=== PATIENT | male | born 1940 ===

== ENCOUNTER 2017-10-25 16:58 | Observation (INO) | payer MEDICARE ==
[~2017-10-25] VITALS: Ht 177.8 cm; Wt 86.9 kg
[~2017-10-25 16:58] MED LIST: ATEN50 PO; Alprazolam0.25 MG PO; B-121000 MCG PO; BAYER CHEWABLE81 MG PO; Benicar40 MG PO; CLOP75 PO; CO Q10200 MG PO; Clotrimazole-Be15 GM TP; DULO60 PO; FINA5 PO; Felodipine ER10 MG PO; Glucophage1000 MG PO; KRILL OIL 3001 EACH PO; LIVALO2 MG; Levitra20 MG; Nitrostat0.4 MG SL; OLME20 PO; TAMS.4ER PO; TERB250 PO; VIT1CAPS12 PO; VITAMIN D-32000 UNIT; VITAMIN D-32000 UNIT PO; ZOLP12.5 PO; ZOLPIDEM TART12.5 MG PO; Zantac150 MG PO
[2017-10-25 18:03] LABS: BASOPHILS ABSOLUTE AUTO 0.04 K/mm3 (0.00-0.23); BASOPHILS PERCENT AUTO 1 % (0-2); EOSINOPHILS ABSOLUTE AUTO 0.35 K/mm3 (0.00-0.68); EOSINOPHILS PERCENT AUTO 5 % (0-6); Hematocrit 42.8 % (37.0-53.0); Hemoglobin 14.3 g/dL (13.5-17.5); IMMATURE GRAN ABSOLUTE AUTO 0.02 K/mm3 (0.00-0.10); IMMATURE GRAN PERCENT AUTO 0 % (0-1); LYMPHOCYTES ABSOLUTE AUTO 1.86 K/mm3 (0.84-5.20); LYMPHOCYTES PERCENT AUTO 25 % (21-46); MONOCYTES ABSOLUTE AUTO 0.68 K/mm3 (0.16-1.47); MONOCYTES PERCENT AUTO 9 % (4-13); Mean Corpuscular HGB 30.8 pg (26.0-34.0); Mean Corpuscular HGB Conc 33.4 g/dL (31.5-36.5); Mean Corpuscular Volume 92 fL (80-100); NEUTROPHILS ABSOLUTE AUTO 4.43 K/mm3 (1.96-9.15); NEUTROPHILS PERCENT AUTO 60 % (41-73); Platelet Count 255 K/mm3 (150-400); RDW Coefficient Variation 12.4 % (11.7-14.2); RDW Standard Deviation 41.9 fL (35.1-46.3); Red Blood Cell Count 4.64 M/mm3 (4.30-5.90); White Blood Cell Count 7.38 K/mm3 (4.00-11.30)
[2017-10-25 18:53] LABS: Alanine Aminotransfer (ALT/SGP 55 U/L (12-78); Albumin, Blood 3.9 g/dL (3.4-5.0); Alk Phos 54 U/L (50-136); Anion Gap 8 mmol/L (6-16); Aspartate Aminotrans (AST/SGOT 25 U/L (12-37); Bilirubin, Total 0.5 mg/dL (0.1-1.0); Blood Urea Nitrogen 25 mg/dL (8-24); Bun/Creatinine Ratio 17.1 (12.0-20.0); CO2, Blood 31 mmol/L (21-32); Chloride, Blood 100 mmol/L (98-108); Creatinine, Blood 1.46 mg/dL (0.60-1.20); Glomerular Filtration Rate 50 (60-); Glucose, Blood 134 mg/dL (70-99); Potassium, Blood 3.9 mmol/L (3.5-5.5); Sodium, Blood 139 mmol/L (136-145); Total Protein, Blood 7.9 g/dL (6.4-8.2); Troponin I <0.015 ng/mL (0.000-0.040)
[2017-10-25] MEDS ORDERED: CHLO25B PO (21:24)
[2017-10-25] MEDS ORDERED: Metformin HCl1000 MG PO (21:25)
[2017-10-25] MEDS ORDERED: OMEG1CAP30 PO (21:25)
[2017-10-25] MEDS ORDERED: LIVALO2 MG PO (21:26)
[2017-10-25] MEDS ORDERED: Isosorbide Mono60 MG PO (21:27)
[2017-10-25] MEDS ORDERED: TRAZ50 PO (21:27)
[2017-10-25] MEDS ORDERED: Lopressor 25 mg25 MG PO (21:27)
[2017-10-25] MEDS ORDERED: NITR.4SL SL (21:27)
[2017-10-25] MEDS ORDERED: OLMESARTAN MEDO40 MG PO (21:27)
[2017-10-25] MEDS ORDERED: AMLO10 PO (21:28)
[2017-10-25] MEDS ORDERED: Glimepiride1 MG PO (21:28)
[2017-10-25] MEDS ORDERED: Glucophage1000 MG PO (21:30)
[2017-10-25] MEDS ORDERED: Benicar40 MG PO (21:31)
[2017-10-25 22:07] LABS: Source, Urine Clean Catch
[2017-10-25 22:09] LABS: Appearance, Urine Clear (Clear); Blood, Urine Neg (Neg); Color, Urine Amber (P-Yellow); Glucose Qualitative, Urine 1+ (Neg); Ketones, Urine 1+ (Neg); Leukocyte Esterase, Urine 1+ (Neg); Nitrite, Urine Neg (Neg); Protein, Urine 2+ (Neg); Urobilinogen, Urine 1+ (Normal)
[2017-10-25 22:16] LABS: Bilirubin, Urine 1+ (Neg); Red Blood Cells, Urine 0-2 /hpf (0-2); Squamous Epithelial Cells Rare /hpf (Few); White Blood Cells, Urine 0-2 /hpf (0-5)
[2017-10-25 22:17] LABS: Bacteria Mod /hpf; Calcium Oxalate Crystals Many /hpf; Hyaline Casts 25-50 /lpf (0-2)
[2017-10-26 04:58] LABS: Hematocrit 37.2 % (37.0-53.0); Hemoglobin 12.5 g/dL (13.5-17.5); Mean Corpuscular HGB 31.2 pg (26.0-34.0); Mean Corpuscular HGB Conc 33.6 g/dL (31.5-36.5); Mean Corpuscular Volume 93 fL (80-100); Mean Platelet Volume 10.7 fL (9.1-12.4); Platelet Count 207 K/mm3 (150-400); RDW Coefficient Variation 12.4 % (11.7-14.2); RDW Standard Deviation 42.5 fL (35.1-46.3); Red Blood Cell Count 4.01 M/mm3 (4.30-5.90); White Blood Cell Count 6.85 K/mm3 (4.00-11.30)
[2017-10-26 05:31] LABS: Albumin, Blood 3.3 g/dL (3.4-5.0); Bilirubin, Total 0.3 mg/dL (0.1-1.0); Bun/Creatinine Ratio 22.2 (12.0-20.0); Calcium, Blood 8.2 mg/dL (8.5-10.1); Creatinine, Blood 1.44 mg/dL (0.60-1.20); Globulin, Blood 3.2 g/dL (2.2-4.0); Potassium, Blood 3.5 mmol/L (3.5-5.5); Total Protein, Blood 6.5 g/dL (6.4-8.2)
== END 2017-10-26 16:28 | disposition home or self-care (01) ==
LOC: ER 16:58 → MEDS 16:59
PROVIDERS: Emergency Medicine; Internal Medicine
DX: R55 Syncope and collapse (principal); N17.9 Acute kidney failure, unspecified; E86.9 Volume depletion, unspecified; E86.0 Dehydration; I10 Essential (primary) hypertension; R53.1 Weakness; E11.9 Type 2 diabetes mellitus without complications; I25.10 Atherosclerotic heart disease of native coronary artery without angina pectoris; N40.0 Benign prostatic hyperplasia without lower urinary tract symptoms; G89.29 Other chronic pain; M54.9 Dorsalgia, unspecified; E78.5 Hyperlipidemia, unspecified; Z79.82 Long term (current) use of aspirin; Z79.02 Long term (current) use of antithrombotics/antiplatelets; Z79.899 Other long term (current) drug therapy; Z79.84 Long term (current) use of oral hypoglycemic drugs; Z87.891 Personal history of nicotine dependence
CPT/HCPCS: 36415; 71046; 80053; 81001; 82947; 83880; 84484; 85025; 85027; 85379; 87086; 93005; 93010; 96360; 96361; 96372; 99285-25; G0378; J1650; J7030

== ENCOUNTER 2018-06-21 11:14 | Emergency (ER) | payer MEDICARE ==
[~2018-06-21 11:14] MED LIST changes: +AMLO10 PO; +CHLO25B PO; +Glimepiride1 MG PO; +Isosorbide Mono60 MG PO; +LIVALO2 MG PO; +Lopressor 25 mg25 MG PO; +Metformin HCl1000 MG PO; +NITR.4SL SL; +OLMESARTAN MEDO40 MG PO; +OMEG1CAP30 PO; +TRAZ50 PO
== END 2018-06-21 11:18 | disposition left against medical advice (07) ==
LOC: ER 11:14
DX: Z53.21 Procedure and treatment not carried out due to patient leaving prior to being seen by health care provider (principal); R58 Hemorrhage, not elsewhere classified

== ENCOUNTER 2018-07-19 07:41 | Day surgery (SDC) | payer MEDICARE ==
[~2018-07-19] VITALS: Ht 177.8 cm; Wt 53.0 kg
[~2018-07-19 07:41] MED LIST changes: +Amaryl1 MG PO; +CHOL10002 PO; +CLOP75; +Coenzyme Q10200 M2 PO; +LO-DOSE ASPIRIN81 MG PO; +Lopressor 50 mg50 MG PO; +METF500 PO; +PRESERVISION A1 EACH PO
== END 2018-07-19 10:32 | disposition home or self-care (01) ==
LOC: ORSCSDS 07:41
PROVIDERS: Internal Medicine Gastroenterology
PROC: 0DBL8ZX Excision of Transverse Colon, Via Natural or Artificial Opening Endoscopic, Diagnostic (ICD-10-PCS; principal; 2018-07-19 09:15)
DX: Z12.11 Encounter for screening for malignant neoplasm of colon (principal); K63.5 Polyp of colon; K57.30 Diverticulosis of large intestine without perforation or abscess without bleeding; K63.89 Other specified diseases of intestine; K64.4 Residual hemorrhoidal skin tags; Z86.010 Personal history of colon polyps; I25.10 Atherosclerotic heart disease of native coronary artery without angina pectoris; I10 Essential (primary) hypertension; E11.9 Type 2 diabetes mellitus without complications; E78.5 Hyperlipidemia, unspecified; Z87.891 Personal history of nicotine dependence; Z79.01 Long term (current) use of anticoagulants; Z79.84 Long term (current) use of oral hypoglycemic drugs; Z79.899 Other long term (current) drug therapy
CPT/HCPCS: 82947; 88305; J0330; J0461; J1980; J2405; J2704; J7120

== ENCOUNTER → 2022-05-01 | Outpatient (CLI) | payer MEDICARE ==
[2022-05-01 16:30] LABS: Albumin, Blood 3.5 g/dL (3.4-5.0); Albumin/Globulin Ratio 0.7 (0.8-1.8); Bilirubin, Total 0.6 mg/dL (0.1-1.0); Globulin, Blood 4.7 g/dL (2.2-4.0); Potassium, Blood 3.6 mmol/L (3.5-5.5); Total Protein, Blood 8.2 g/dL (6.4-8.2)
== END | disposition home or self-care (01) ==
LOC: LAB 15:58 → LAB SHORT 15:58
PROVIDERS: Physician Assistant
DX: U07.1 COVID-19 (principal)
CPT/HCPCS: 80053

== ENCOUNTER 2022-07-17 13:42 | Inpatient (IN) | payer MEDICARE ==
[~2022-07-17] VITALS: Ht 177.8 cm; Wt 79.0 kg
[2022-07-17] MEDS ORDERED: XARELTO20 MG PO (16:15)
[2022-07-17] MEDS ORDERED: INSULANI IM (16:17)
[2022-07-17 21:15] LABS: Source, Urine Clean Catch
[2022-07-17 21:17] LABS: Appearance, Urine Clear (Clear); Bilirubin, Urine Neg (Neg); Blood, Urine 1+ (Neg); Color, Urine Amber (P-Yellow); Glucose Qualitative, Urine 1+ (Neg); Ketones, Urine Neg (Neg); Leukocyte Esterase, Urine 1+ (Neg); Nitrite, Urine Neg (Neg); Protein, Urine 2+ (Neg); Specific Gravity, Urine 1.025 (1.003-1.022); Urobilinogen, Urine 1+ (Normal)
[2022-07-17 21:24] LABS: Bacteria Many /hpf; Hyaline Casts 0-2 /lpf (0-2); Mucus Light (0-Heavy); Red Blood Cells, Urine 25-50 /hpf (0-2); Squamous Epithelial Cells Few /hpf (Few); Yeast/Fungi Urine Rare /hpf
[2022-07-18 01:50] LABS: BASOPHILS ABSOLUTE AUTO 0.05 K/mm3 (0.00-0.23); BASOPHILS PERCENT AUTO 1 % (0-2); EOSINOPHILS ABSOLUTE AUTO 0.29 K/mm3 (0.00-0.68); EOSINOPHILS PERCENT AUTO 3 % (0-6); Hematocrit 37.3 % (37.0-53.0); Hemoglobin 12.5 g/dL (13.5-17.5); IMMATURE GRAN ABSOLUTE AUTO 0.03 K/mm3 (0.00-0.10); IMMATURE GRAN PERCENT AUTO 0 % (0-1); LYMPHOCYTES ABSOLUTE AUTO 1.74 K/mm3 (0.84-5.20); LYMPHOCYTES PERCENT AUTO 21 % (21-46); MONOCYTES ABSOLUTE AUTO 0.96 K/mm3 (0.16-1.47); MONOCYTES PERCENT AUTO 11 % (4-13); Mean Corpuscular HGB 30.6 pg (26.0-34.0); Mean Corpuscular HGB Conc 33.5 g/dL (31.5-36.5); Mean Corpuscular Volume 91 fL (80-100); Mean Platelet Volume 11.1 fL (9.1-12.4); NEUTROPHILS ABSOLUTE AUTO 5.37 K/mm3 (1.96-9.15); NEUTROPHILS PERCENT AUTO 64 % (41-73); Platelet Count 229 K/mm3 (150-400); RDW Coefficient Variation 14.8 % (11.7-14.2); RDW Standard Deviation 50.4 fL (35.1-46.3); Red Blood Cell Count 4.08 M/mm3 (4.30-5.90); White Blood Cell Count 8.44 K/mm3 (4.00-11.30)
[2022-07-18 01:55] LABS: Bun/Creatinine Ratio 20.6 (12.0-20.0); Calcium, Blood 8.8 mg/dL (8.5-10.1); Creatinine, Blood 1.07 mg/dL (0.60-1.20); Potassium, Blood 3.6 mmol/L (3.5-5.5)
[2022-07-18 16:49] VITALS: BP 171/65
[2022-07-18 19:50] VITALS: BP 185/92
--- NOTE | 2022-07-18 19:50 | NUR ---
SUMMARY- PT A/OX3, FORGETFUL AND FIDGITY, PULLED OUT IV AT 1800. TOLERATING FOOD AND FLUIDS. INCONT BLADDER. CHANGED ATTENDS. MILD REDNESS IN GROIN, APPLIED POWDER AFTER CLEANSING. AT BEDSIDE MOST OF SHIFT, ATTENTIVE TO PT. WENT HOME FOR THE NIGHT. BED ALARM SET FOR SAFETY. REPORTED TO LISA SOLANO.
[2022-07-19 02:16] VITALS: BP 145/74
--- NOTE | 2022-07-19 05:35 | NUR ---
SHIFT SUMMARY 81 YR M ADMITTED ON 07/18/22 FOR UTI. DNR. NO ACUTE CHANGES THIS SHIFT. PT APPEARS TO HAVE SLEPT PEACEFULLY FOR MOST OF THIS SHIFT. HE WOKE AT APPROX 0500 AND APPEARED TO BE MUCH CLEARER HEADED THAN HE WAS LAST NIGHT. HIS DEMEANOR IS CALM AND QUIET AND HE IS COOPERATIVE WITH CARE.
[2022-07-19 06:36] LABS: Albumin, Blood 3.1 g/dL (3.4-5.0); Anion Gap 6 mmol/L (6-16); Blood Urea Nitrogen 18 mg/dL (8-24); Bun/Creatinine Ratio 18.3 (12.0-20.0); CO2, Blood 27 mmol/L (21-32); Calcium, Blood 8.6 mg/dL (8.5-10.1); Chloride, Blood 106 mmol/L (98-108); Creatinine, Blood 0.99 mg/dL (0.60-1.20); Glomerular Filtration Rate 76 (60-); Glucose, Blood 159 mg/dL (70-99); Magnesium, Blood 2.4 mg/dL (1.6-2.4); Phosphorus, Blood 3.1 mg/dL (2.5-4.9); Potassium, Blood 4.4 mmol/L (3.5-5.5); Sodium, Blood 139 mmol/L (136-145)
[2022-07-19 08:09] VITALS: BP 184/99
[2022-07-19 10:13] VITALS: BP 153/71
--- NOTE | 2022-07-19 15:34 | NUR ---
UNABLE TO OBTAIN UA VIA ST CATH ANATOMY WOULDN'T ALLOW CATH TO PASS THROUGH PROSTATE EVEN TRYING COUDE. CAUSED SMALL AMOUNT OF BLEEDING FROM URETHRA. WILL CONT TO ATTEMPT UA EVEN THOUGH PT INCONTINENT
[2022-07-19 15:48] VITALS: BP 166/90
--- NOTE | 2022-07-19 16:25 | NUR ---
SUMMARY- PT A/O X4, FUZZY ON DETAILS. GOT UP WITH PHYSICAL THERAPY TODAY AND AMBULATED IN ROOM WITH WALKER, POOR GAIT, ADQ STRENGTH. INCONT BLADDER, UNABLE TO GET UA VIA COUDE OR ST CATCH TODAY. PLAN TO OBTAIN PED'S CONNER. PT TOLERATING FOOD AND FLUID. GIVEN MOM TO STIM BM, STATED NO BM FOR A WEEK, BUT STATES THIS IS NORMAL. PHYS [place] STATES LIKELY SNF FOR STRENGTHENING BEFORE GOING HOME.
[2022-07-19 19:14] VITALS: BP 116/77
--- NOTE | 2022-07-20 04:38 | NUR ---
EVELINE IS A&0X3-4 WITH SOME INTERMITTANT MILD CONFUSION OVERNIGHT AND SOME OBVIOUS SHORT TERM MEMORY ISSUES. AFTER MULTIPLE UNSUCCESSFUL ATTEMPTS YESTERDAY TO STRAIGHT CATH HIM, HIS URINE IS STILL SLIGHTLY BLOODY. A CONDOM CATH WAS PLACED, BUT WAS SHORTLY AFTER REMOVED BY PATIENT WITH NO OUTPUT TO SEND TO LAB. PATIENT GAVE NO INDICATION OF PAIN OR DISCOMFORT. BED ALARM WAS SET FOR SAFETY PATIENT KEPT TRYING TO GET OOB. INCONTINENT OF LARGE BM JUST BEFORE HS
[2022-07-20 06:23] LABS: Albumin, Blood 3.1 g/dL (3.4-5.0); Anion Gap 3 mmol/L (6-16); Blood Urea Nitrogen 17 mg/dL (8-24); Bun/Creatinine Ratio 17.7 (12.0-20.0); CO2, Blood 28 mmol/L (21-32); Calcium, Blood 8.2 mg/dL (8.5-10.1); Chloride, Blood 102 mmol/L (98-108); Creatinine, Blood 0.96 mg/dL (0.60-1.20); Glomerular Filtration Rate 78 (60-); Glucose, Blood 165 mg/dL (70-99); Phosphorus, Blood 2.3 mg/dL (2.5-4.9); Sodium, Blood 133 mmol/L (136-145)
[2022-07-20 09:14] VITALS: BP 144/75
--- NOTE | 2022-07-20 16:08 | NUR ---
SHIFT NOTE PT AWAKE AND ALERT. BECAME VERY WEAK AND SHAKY AFTER SHOWER. NEEDED 2 ASSIST BACK TO BED. VSS. AT BEDSIDE. GOOD APPETITE. DENIED DISCOMFROT. NO ACUTE CHANGES NOTED. CONTINUE POC.
[2022-07-20 18:09] VITALS: BP 189/85
[2022-07-20 19:56] VITALS: BP 144/68
[2022-07-20 21:02] LABS: Source, Urine Clean Catch
[2022-07-20 21:05] LABS: Appearance, Urine Clear (Clear); Bilirubin, Urine Neg (Neg); Blood, Urine 5+ (Neg); Color, Urine Yellow (P-Yellow); Glucose Qualitative, Urine Neg (Neg); Ketones, Urine Neg (Neg); Leukocyte Esterase, Urine 1+ (Neg); Nitrite, Urine Neg (Neg); Protein, Urine 2+ (Neg); Specific Gravity, Urine 1.015 (1.003-1.022); Urobilinogen, Urine NORM (Normal); pH, Urine 6.5 (5.0-8.0)
[2022-07-20 21:16] LABS: Bacteria Few /hpf; Red Blood Cells, Urine 25-50 /hpf (0-2); Squamous Epithelial Cells Few /hpf (Few); White Blood Cells, Urine 0-2 /hpf (0-5)
[2022-07-21 05:17] VITALS: BP 116/67
--- NOTE | 2022-07-21 06:10 | NUR ---
PATIENT SLEPT WELL THROUGH THE NIGHT, REMAINS ORIENTED X4, IS WEAK, BUT ABLE TO CHANGE POSITIONS IN BED, DID NOT GET UP FOR FURTHER ASSESSMENT. VSS, IV SL, 1+ EDEMA TO BLE. NO OTHER ISSUES TO REPORT.
[2022-07-21 06:15] LABS: BASOPHILS ABSOLUTE AUTO 0.04 K/mm3 (0.00-0.23); BASOPHILS PERCENT AUTO 0 % (0-2); EOSINOPHILS PERCENT AUTO 2 % (0-6); Hematocrit 36.1 % (37.0-53.0); Hemoglobin 12.1 g/dL (13.5-17.5); IMMATURE GRAN ABSOLUTE AUTO 0.04 K/mm3 (0.00-0.10); IMMATURE GRAN PERCENT AUTO 0 % (0-1); LYMPHOCYTES ABSOLUTE AUTO 1.41 K/mm3 (0.84-5.20); LYMPHOCYTES PERCENT AUTO 15 % (21-46); MONOCYTES PERCENT AUTO 14 % (4-13); Mean Corpuscular HGB Conc 33.5 g/dL (31.5-36.5); Mean Corpuscular Volume 93 fL (80-100); Mean Platelet Volume 11.1 fL (9.1-12.4); NEUTROPHILS ABSOLUTE AUTO 6.49 K/mm3 (1.96-9.15); NEUTROPHILS PERCENT AUTO 69 % (41-73); Platelet Count 208 K/mm3 (150-400); RDW Coefficient Variation 15.1 % (11.7-14.2); RDW Standard Deviation 50.9 fL (35.1-46.3); White Blood Cell Count 9.48 K/mm3 (4.00-11.30)
[2022-07-21 06:50] LABS: Calcium, Blood 8.6 mg/dL (8.5-10.1); Creatinine, Blood 1.05 mg/dL (0.60-1.20)
[2022-07-21 07:54] VITALS: BP 114/64
[2022-07-21 16:06] VITALS: BP 127/62
--- NOTE | 2022-07-21 16:40 | NUR ---
SHIFT SUMMARY PT. FAMILY IN AT BEDSIDE ON AND OFF T/O SHIFT. PT IS AOX4 WITH TIMES OF CONFUSION. DR. ORTEZ IN THIS AM TALKED WITH PATIENT ABOUT CODE STATUS AND HELPED PT. FILL OUT POLST. CARMEN SOLANO PLACED PURPLE DNR WRISTBAND ON LEFT WRIST. THIS AM PT. HAD INCREASED CONFUSION WITH DOCTOR NEELIMA IN ROOM, TO MONITOR NO DISCHARGE TODAY. PT. IS OF PLEASANT AFFECT, SOFT SPEECH AND COOPERATIVE WITH CARE. BED LOCKED AND IN LOWEST POSITION, CALL LIGHT WITHIN REACH.
[2022-07-21 19:45] VITALS: BP 128/75
[2022-07-22 03:19] VITALS: BP 126/63
[2022-07-22 05:14] LABS: BASOPHILS ABSOLUTE AUTO 0.04 K/mm3 (0.00-0.23); BASOPHILS PERCENT AUTO 1 % (0-2); EOSINOPHILS ABSOLUTE AUTO 0.29 K/mm3 (0.00-0.68); EOSINOPHILS PERCENT AUTO 4 % (0-6); Hematocrit 35.2 % (37.0-53.0); IMMATURE GRAN ABSOLUTE AUTO 0.01 K/mm3 (0.00-0.10); IMMATURE GRAN PERCENT AUTO 0 % (0-1); LYMPHOCYTES ABSOLUTE AUTO 1.15 K/mm3 (0.84-5.20); LYMPHOCYTES PERCENT AUTO 15 % (21-46); MONOCYTES ABSOLUTE AUTO 0.86 K/mm3 (0.16-1.47); MONOCYTES PERCENT AUTO 11 % (4-13); Mean Corpuscular HGB 30.8 pg (26.0-34.0); Mean Corpuscular HGB Conc 34.1 g/dL (31.5-36.5); Mean Corpuscular Volume 91 fL (80-100); Mean Platelet Volume 10.8 fL (9.1-12.4); NEUTROPHILS ABSOLUTE AUTO 5.23 K/mm3 (1.96-9.15); NEUTROPHILS PERCENT AUTO 69 % (41-73); Platelet Count 230 K/mm3 (150-400); RDW Standard Deviation 49.8 fL (35.1-46.3); Red Blood Cell Count 3.89 M/mm3 (4.30-5.90); White Blood Cell Count 7.58 K/mm3 (4.00-11.30)
[2022-07-22 05:38] LABS: Bun/Creatinine Ratio 24.5 (12.0-20.0); Calcium, Blood 8.7 mg/dL (8.5-10.1); Creatinine, Blood 1.02 mg/dL (0.60-1.20)
[2022-07-22 07:14] VITALS: BP 134/75
[2022-07-22 10:30] VITALS: BP 131/73
[2022-07-22 10:34] VITALS: BP 123/69
--- NOTE | 2022-07-22 10:41 | NUR ---
"Spiritual Care Support Attempted | Rapid Response Rapid Response called for Pt. Supported family during the response. Spouse declined any further spiritual care and verbalized gratitude for the spiritual care response."
[2022-07-22 18:48] VITALS: BP 128/66
--- NOTE | 2022-07-22 18:58 | NUR ---
PATIENT ORIENTED TO SELF TODAY MOSTLY WITH ALTERED NEURO RESPONSE THIS MORNING. RAPID RESPONSE CALLED DUE TO PATIENT LEANING TO RIGHT SIDE, UNABLE TO STATE NAME AND DATE OF CARLOS AND VOICE DECREASED TO WHISPER. RAPID RESPONSE CALLED AT APPROX 1029AM, VITALS STABLE. CT OF HEAD ORDERED. PATIENT SYMPTOMS RESOLVED WITHIN 3 MINUTES OF ONSET. VITALS TAKEN AT 1030 AND 1034. PATIENT THEN ABLE TO STATE HIS NAME AND DATE OF CARLOS. NO OTHER COMPLAINTS DURING SHIFT BY PATIENT OR FAMILY AT BEDSIDE. CALL LIGHT IN REACH, BED IN LOW POSITION AND ALARM ON WHEN FAMILY NOT IN ROOM. PATIENT HITS CALL LIGHT OFTEN, THINKING IT IS FOR HIS TV CONTROL.
[2022-07-22 19:14] VITALS: BP 149/75
[2022-07-23 02:24] VITALS: BP 138/83
[2022-07-23 04:57] LABS: BASOPHILS ABSOLUTE AUTO 0.03 K/mm3 (0.00-0.23); BASOPHILS PERCENT AUTO 0 % (0-2); EOSINOPHILS ABSOLUTE AUTO 0.33 K/mm3 (0.00-0.68); EOSINOPHILS PERCENT AUTO 5 % (0-6); Hematocrit 34.4 % (37.0-53.0); Hemoglobin 11.6 g/dL (13.5-17.5); IMMATURE GRAN ABSOLUTE AUTO 0.01 K/mm3 (0.00-0.10); IMMATURE GRAN PERCENT AUTO 0 % (0-1); LYMPHOCYTES ABSOLUTE AUTO 1.41 K/mm3 (0.84-5.20); LYMPHOCYTES PERCENT AUTO 21 % (21-46); MONOCYTES ABSOLUTE AUTO 0.65 K/mm3 (0.16-1.47); MONOCYTES PERCENT AUTO 9 % (4-13); Mean Corpuscular HGB 30.9 pg (26.0-34.0); Mean Corpuscular HGB Conc 33.7 g/dL (31.5-36.5); Mean Corpuscular Volume 92 fL (80-100); Mean Platelet Volume 10.9 fL (9.1-12.4); NEUTROPHILS ABSOLUTE AUTO 4.46 K/mm3 (1.96-9.15); NEUTROPHILS PERCENT AUTO 65 % (41-73); Platelet Count 242 K/mm3 (150-400); RDW Coefficient Variation 14.7 % (11.7-14.2); RDW Standard Deviation 49.2 fL (35.1-46.3); Red Blood Cell Count 3.76 M/mm3 (4.30-5.90); White Blood Cell Count 6.89 K/mm3 (4.00-11.30)
[2022-07-23 05:15] LABS: Bun/Creatinine Ratio 19.1 (12.0-20.0); Calcium, Blood 8.6 mg/dL (8.5-10.1); Creatinine, Blood 1.1 mg/dL (0.60-1.20); Potassium, Blood 3.9 mmol/L (3.5-5.5)
[2022-07-23 07:34] VITALS: BP 118/105
[2022-07-23 07:35] VITALS: BP 142/75
[2022-07-23 09:30] LABS: SARS-Cov-2 (COVID-19) PCR, MMC NEGATIVE (NEGATIVE)
[2022-07-23] MEDS ORDERED: ALOGLIPTIN25 M1 PO (12:52)
[2022-07-23] MEDS ORDERED: ROSU10TA PO (12:52)
--- NOTE | 2022-07-23 14:47 | NUR ---
[facility] REPORT CALLED TO [facility] PRIOR TO TRANSFER. AWARE OF TRANSFER. CONTINUE POC.
--- NOTE | 2022-07-23 16:55 | NUR ---
DISCHARGE PT DISCHARGED VIA W/C [facility] TO [facility]. IV REMOVED. WILL FOLLOW [facility]. [facility] WARNED ABOUT PT WITNESSED AGRESSION TOWARDS HIS . NO AGGRESSION TOWARDS STAFF. CONTINUE POC.
== END 2022-07-23 16:51 | DRG 551 ==
LOC: ER 13:42 → MEDS 07-18 13:46 → ENPENDDIS 07-23 10:47 → MEDS 07-23 16:51
PROVIDERS: Family Medicine; Physician Assistant; Student in an Organized Health Care Education/Training Program; ADMIT Internal Medicine Endocrinology, Diabetes & Metabolism
DX: M48.061 Spinal stenosis, lumbar region without neurogenic claudication (principal); G93.41 Metabolic encephalopathy; R47.01 Aphasia; I67.82 Cerebral ischemia; I48.19 Other persistent atrial fibrillation; G45.9 Transient cerebral ischemic attack, unspecified; I10 Essential (primary) hypertension; Z66 Do not resuscitate; I25.10 Atherosclerotic heart disease of native coronary artery without angina pectoris; E11.42 Type 2 diabetes mellitus with diabetic polyneuropathy; F41.9 Anxiety disorder, unspecified; F32.A Depression, unspecified; G47.00 Insomnia, unspecified; R29.6 Repeated falls; E78.2 Mixed hyperlipidemia; H35.30 Unspecified macular degeneration; K59.00 Constipation, unspecified; M51.36 Other intervertebral disc degeneration, lumbar region; N40.1 Benign prostatic hyperplasia with lower urinary tract symptoms; N39.41 Urge incontinence; Z20.822 Contact with and (suspected) exposure to COVID-19; Z98.890 Other specified postprocedural states; Z95.5 Presence of coronary angioplasty implant and graft; Z87.891 Personal history of nicotine dependence; Z99.3 Dependence on wheelchair; Z79.84 Long term (current) use of oral hypoglycemic drugs; Z79.01 Long term (current) use of anticoagulants; Z79.4 Long term (current) use of insulin; Z79.899 Other long term (current) drug therapy
CPT/HCPCS: 36415; 70450; 72100; 72131; 73562-RT; 80048; 80069; 81001; 82607; 82746; 82947; 83735; 85025; 87086; 93880; 96365; 96375; 97110; 97116; 97162; 97166; 97530; 97535; 99285-25; A9270; J0696; J3480; U0002

== ENCOUNTER 2022-10-14 00:33 | Emergency (ER) | payer MEDICARE ==
[~2022-10-14 00:33] MED LIST changes: +ALOGLIPTIN25 M1 PO; +INSULANI IM; +ROSU10TA PO; +XARELTO20 MG PO
[2022-10-14 00:57] VITALS: BP 122/102
[2022-10-14 04:52] LABS: Albumin, Blood 3.5 g/dL (3.4-5.0); Albumin/Globulin Ratio 0.9 (0.8-1.8); Bilirubin, Total 0.7 mg/dL (0.1-1.0); Bun/Creatinine Ratio 19.4 (12.0-20.0); Calcium, Blood 9.5 mg/dL (8.5-10.1); Creatinine, Blood 1.08 mg/dL (0.60-1.20); Globulin, Blood 3.7 g/dL (2.2-4.0); Total Protein, Blood 7.2 g/dL (6.4-8.2)
[2022-10-14 06:33] LABS: BASOPHILS ABSOLUTE AUTO 0.05 K/mm3 (0.00-0.23); BASOPHILS PERCENT AUTO 1 % (0-2); EOSINOPHILS ABSOLUTE AUTO 0.34 K/mm3 (0.00-0.68); EOSINOPHILS PERCENT AUTO 5 % (0-6); Hematocrit 31.3 % (37.0-53.0); IMMATURE GRAN ABSOLUTE AUTO 0.01 K/mm3 (0.00-0.10); IMMATURE GRAN PERCENT AUTO 0 % (0-1); LYMPHOCYTES ABSOLUTE AUTO 2.04 K/mm3 (0.84-5.20); LYMPHOCYTES PERCENT AUTO 27 % (21-46); MONOCYTES ABSOLUTE AUTO 0.85 K/mm3 (0.16-1.47); MONOCYTES PERCENT AUTO 11 % (4-13); Mean Corpuscular HGB 25.4 pg (26.0-34.0); Mean Corpuscular HGB Conc 31.9 g/dL (31.5-36.5); Mean Corpuscular Volume 80 fL (80-100); Mean Platelet Volume 11.5 fL (9.1-12.4); NEUTROPHILS ABSOLUTE AUTO 4.29 K/mm3 (1.96-9.15); NEUTROPHILS PERCENT AUTO 57 % (41-73); Platelet Count 245 K/mm3 (150-400); RDW Coefficient Variation 17.6 % (11.7-14.2); RDW Standard Deviation 51.4 fL (35.1-46.3); Red Blood Cell Count 3.93 M/mm3 (4.30-5.90); White Blood Cell Count 7.58 K/mm3 (4.00-11.30)
[2022-10-14] MEDS ORDERED: AMLO5 PO (20:48)
[2022-10-14] MEDS ORDERED: BASAGLAR K100 UNIT/3 SC (20:52)
== END 2022-10-14 02:40 | disposition home or self-care (01) ==
LOC: ER 00:33
PROVIDERS: Emergency Medicine
DX: S00.03XA Contusion of scalp, initial encounter (principal); W18.30XA Fall on same level, unspecified, initial encounter; Z79.899 Other long term (current) drug therapy; Z79.84 Long term (current) use of oral hypoglycemic drugs; G47.00 Insomnia, unspecified; I25.10 Atherosclerotic heart disease of native coronary artery without angina pectoris; I10 Essential (primary) hypertension; E11.42 Type 2 diabetes mellitus with diabetic polyneuropathy; I48.91 Unspecified atrial fibrillation; E78.5 Hyperlipidemia, unspecified; Z87.891 Personal history of nicotine dependence
CPT/HCPCS: 70450; 80053; 85025; 93005; 93010; 99284-25

== ENCOUNTER 2022-10-27 17:15 | Emergency (ER) | payer MEDICARE ==
[~2022-10-27] VITALS: Ht 177.8 cm; Wt 74.4 kg
[~2022-10-27 17:15] MED LIST changes: +AMLO5 PO; +BASAGLAR K100 UNIT/3 SC
[2022-10-27 19:42] LABS: BASOPHILS ABSOLUTE AUTO 0.06 K/mm3 (0.00-0.23); BASOPHILS PERCENT AUTO 1 % (0-2); EOSINOPHILS PERCENT AUTO 3 % (0-6); Hematocrit 39.6 % (37.0-53.0); Hemoglobin 12.4 g/dL (13.5-17.5); IMMATURE GRAN ABSOLUTE AUTO 0.01 K/mm3 (0.00-0.10); IMMATURE GRAN PERCENT AUTO 0 % (0-1); LYMPHOCYTES ABSOLUTE AUTO 1.91 K/mm3 (0.84-5.20); LYMPHOCYTES PERCENT AUTO 21 % (21-46); MONOCYTES ABSOLUTE AUTO 0.68 K/mm3 (0.16-1.47); MONOCYTES PERCENT AUTO 7 % (4-13); Mean Corpuscular HGB 24.8 pg (26.0-34.0); Mean Corpuscular HGB Conc 31.3 g/dL (31.5-36.5); Mean Corpuscular Volume 79 fL (80-100); Mean Platelet Volume 10.6 fL (9.1-12.4); NEUTROPHILS ABSOLUTE AUTO 6.22 K/mm3 (1.96-9.15); NEUTROPHILS PERCENT AUTO 68 % (41-73); Platelet Count 346 K/mm3 (150-400); RDW Coefficient Variation 18.3 % (11.7-14.2); RDW Standard Deviation 52.3 fL (35.1-46.3); Red Blood Cell Count 4.99 M/mm3 (4.30-5.90); White Blood Cell Count 9.18 K/mm3 (4.00-11.30)
[2022-10-27 20:05] LABS: Albumin, Blood 3.8 g/dL (3.4-5.0); Albumin/Globulin Ratio 0.9 (0.8-1.8); Bilirubin, Total 0.4 mg/dL (0.1-1.0); Bun/Creatinine Ratio 34.6 (12.0-20.0); Calcium, Blood 9.5 mg/dL (8.5-10.1); Creatinine, Blood 1.04 mg/dL (0.60-1.20); Globulin, Blood 4.1 g/dL (2.2-4.0); Potassium, Blood 4.1 mmol/L (3.5-5.5); Total Protein, Blood 7.9 g/dL (6.4-8.2)
[2022-10-27 21:39] LABS: Source, Urine Clean Catch
[2022-10-27 21:44] LABS: Bilirubin, Urine Neg (Neg); Blood, Urine 5+ (Neg); Glucose Qualitative, Urine Neg (Neg); Ketones, Urine Neg (Neg); Leukocyte Esterase, Urine Neg (Neg); Nitrite, Urine Neg (Neg); Protein, Urine 2+ (Neg); Specific Gravity, Urine 1.025 (1.003-1.022); Urobilinogen, Urine 1+ (Normal)
[2022-10-27 22:03] LABS: Color, Urine Yellow (P-Yellow)
[2022-10-27 22:04] LABS: Appearance, Urine Hazy (Clear)
[2022-10-27 22:05] LABS: Bacteria Few /hpf; Red Blood Cells, Urine TNTC /hpf (0-2); Squamous Epithelial Cells Rare /hpf (Few); White Blood Cells, Urine 0-2 /hpf (0-5)
[2022-10-27 23:01] LABS: Magnesium, Blood 2.2 mg/dL (1.6-2.4)
[2022-10-28 10:00] VITALS: BP 136/78
== END 2022-10-28 11:01 | disposition home or self-care (01) ==
LOC: ER 17:15
PROVIDERS: Emergency Medicine
DX: R51.9 Headache, unspecified (principal); W18.39XA Other fall on same level, initial encounter; I25.10 Atherosclerotic heart disease of native coronary artery without angina pectoris; I10 Essential (primary) hypertension; I48.91 Unspecified atrial fibrillation; E11.42 Type 2 diabetes mellitus with diabetic polyneuropathy; E78.5 Hyperlipidemia, unspecified; F32.A Depression, unspecified; Z79.01 Long term (current) use of anticoagulants; Z79.4 Long term (current) use of insulin; Z79.899 Other long term (current) drug therapy; Z87.891 Personal history of nicotine dependence
CPT/HCPCS: 51701; 51798; 70450; 80053; 81001; 83735; 85025; 93005; 93010; 99285-25

== ENCOUNTER 2023-03-17 13:50 | Emergency (ER) | payer MEDICARE ==
[~2023-03-17] VITALS: Ht 177.8 cm; Wt 90.7 kg
[2023-03-17 14:44] LABS: BASOPHILS ABSOLUTE AUTO 0.06 K/mm3 (0.00-0.23); BASOPHILS PERCENT AUTO 1 % (0-2); EOSINOPHILS ABSOLUTE AUTO 0.38 K/mm3 (0.00-0.68); EOSINOPHILS PERCENT AUTO 3 % (0-6); Hematocrit 39.4 % (37.0-53.0); Hemoglobin 12.9 g/dL (13.5-17.5); IMMATURE GRAN ABSOLUTE AUTO 0.04 K/mm3 (0.00-0.10); IMMATURE GRAN PERCENT AUTO 0 % (0-1); LYMPHOCYTES ABSOLUTE AUTO 2.05 K/mm3 (0.84-5.20); LYMPHOCYTES PERCENT AUTO 16 % (21-46); MONOCYTES ABSOLUTE AUTO 0.87 K/mm3 (0.16-1.47); MONOCYTES PERCENT AUTO 7 % (4-13); Mean Corpuscular HGB 28.2 pg (26.0-34.0); Mean Corpuscular HGB Conc 32.7 g/dL (31.5-36.5); Mean Corpuscular Volume 86 fL (80-100); Mean Platelet Volume 10.4 fL (9.1-12.4); NEUTROPHILS ABSOLUTE AUTO 9.14 K/mm3 (1.96-9.15); NEUTROPHILS PERCENT AUTO 73 % (41-73); Platelet Count 276 K/mm3 (150-400); RDW Coefficient Variation 17.2 % (11.7-14.2); RDW Standard Deviation 54.7 fL (35.1-46.3); Red Blood Cell Count 4.57 M/mm3 (4.30-5.90); White Blood Cell Count 12.54 K/mm3 (4.00-11.30)
[2023-03-17 15:02] LABS: Albumin, Blood 3.6 g/dL (3.4-5.0); Albumin/Globulin Ratio 0.9 (0.8-1.8); Bilirubin, Total 0.4 mg/dL (0.1-1.0); Calcium, Blood 9.9 mg/dL (8.5-10.1); Creatinine, Blood 1.11 mg/dL (0.60-1.20); Potassium, Blood 4.4 mmol/L (3.5-5.5); Total Protein, Blood 7.6 g/dL (6.4-8.2)
[2023-03-17 16:16] LABS: Magnesium, Blood 2.1 mg/dL (1.6-2.4)
[2023-03-17 17:05] LABS: Influenza A, PCR NEGATIVE (NEGATIVE); Influenza B, PCR NEGATIVE (NEGATIVE); Resp Syncytial Virus, PCR NEGATIVE (NEGATIVE); SARS-Cov-2 (COVID-19) PCR, MMC NEGATIVE (NEGATIVE)
[2023-03-18 02:24] VITALS: BP 105/55
[2023-03-18 05:15] LABS: Source, Urine Clean Catch
[2023-03-18 05:23] LABS: Appearance, Urine Clear (Clear); Bilirubin, Urine Neg (Neg); Blood, Urine Neg (Neg); Color, Urine Yellow (P-Yellow); Glucose Qualitative, Urine Neg (Neg); Ketones, Urine Neg (Neg); Leukocyte Esterase, Urine 2+ (Neg); Nitrite, Urine Neg (Neg); Protein, Urine 2+ (Neg); Urobilinogen, Urine NORM (Normal)
[2023-03-18 05:49] LABS: Bacteria Rare /hpf; Red Blood Cells, Urine Not Seen /hpf (0-2); Squamous Epithelial Cells Rare /hpf (Few)
== END 2023-03-18 06:25 | disposition home or self-care (01) ==
LOC: ER 13:50
PROVIDERS: Emergency Medicine
DX: R53.1 Weakness (principal); I10 Essential (primary) hypertension; E11.9 Type 2 diabetes mellitus without complications; F03.90 Unspecified dementia, unspecified severity, without behavioral disturbance, psychotic disturbance, mood disturbance, and anxiety; I25.10 Atherosclerotic heart disease of native coronary artery without angina pectoris; I48.91 Unspecified atrial fibrillation; E78.5 Hyperlipidemia, unspecified; Z86.73 Personal history of transient ischemic attack (TIA), and cerebral infarction without residual deficits; Z79.02 Long term (current) use of antithrombotics/antiplatelets; Z87.891 Personal history of nicotine dependence; Z79.899 Other long term (current) drug therapy; Z79.84 Long term (current) use of oral hypoglycemic drugs; Z79.4 Long term (current) use of insulin
CPT/HCPCS: 0241U; 70450; 71045; 74177; 80053; 81001; 83735; 84484; 85025; 87086; 93005; 93010; 96360; 99285-25; A9270; J7120; Q9967

== ENCOUNTER 2023-03-28 18:30 | Observation (INO) | payer MEDICARE ==
[~2023-03-28] VITALS: Ht 175.3 cm; Wt 72.6 kg
[2023-03-28] MEDS ORDERED: LORA2 SL (18:44)
[2023-03-28] MEDS ORDERED: METOPROLOL TART5010 PO (18:44)
[2023-03-28] MEDS ORDERED: OLANZAPINE ODT512 MM (18:45)
[2023-03-28] MEDS ORDERED: ROSUVASTATIN CA10 MG PO (18:45)
[2023-03-28] MEDS ORDERED: ZOLOFT25 MG PO (18:45)
[2023-03-28] MEDS ORDERED: QUETIAPINE FUMA25 MG PO (18:45)
[2023-03-28] MEDS ORDERED: METFORMIN HCL500 M2 PO (18:45)
[2023-03-28] MEDS ORDERED: Metoprolol Tartrate 50 MG Tab PO ONE (20:05)
[2023-03-28] MEDS ORDERED: MetFORMIN HCl 500 mg PO ONE (20:05)
[2023-03-28 20:15] LABS: BASOPHILS ABSOLUTE AUTO 0.07 K/mm3 (0.00-0.23); BASOPHILS PERCENT AUTO 1 % (0-2); EOSINOPHILS ABSOLUTE AUTO 0.51 K/mm3 (0.00-0.68); EOSINOPHILS PERCENT AUTO 5 % (0-6); Hematocrit 39.1 % (37.0-53.0); Hemoglobin 12.9 g/dL (13.5-17.5); IMMATURE GRAN ABSOLUTE AUTO 0.05 K/mm3 (0.00-0.10); IMMATURE GRAN PERCENT AUTO 1 % (0-1); LYMPHOCYTES ABSOLUTE AUTO 1.84 K/mm3 (0.84-5.20); LYMPHOCYTES PERCENT AUTO 19 % (21-46); MONOCYTES ABSOLUTE AUTO 0.84 K/mm3 (0.16-1.47); MONOCYTES PERCENT AUTO 8 % (4-13); Mean Corpuscular HGB 28.3 pg (26.0-34.0); Mean Corpuscular Volume 86 fL (80-100); NEUTROPHILS ABSOLUTE AUTO 6.66 K/mm3 (1.96-9.15); NEUTROPHILS PERCENT AUTO 67 % (41-73); RDW Coefficient Variation 16.9 % (11.7-14.2); RDW Standard Deviation 52.9 fL (35.1-46.3); Red Blood Cell Count 4.56 M/mm3 (4.30-5.90); White Blood Cell Count 9.97 K/mm3 (4.00-11.30)
[2023-03-28 20:17] LABS: Mean Platelet Volume 10.5 fL (9.1-12.4)
[2023-03-28 20:24] LABS: Platelet Count 250 K/mm3 (150-400)
[2023-03-28 20:31] LABS: Albumin, Blood 3.6 g/dL (3.4-5.0); Bilirubin, Total 0.4 mg/dL (0.1-1.0); Bun/Creatinine Ratio 27.6 (12.0-20.0); Calcium, Blood 9.8 mg/dL (8.5-10.1); Creatinine, Blood 0.98 mg/dL (0.60-1.20); Globulin, Blood 3.6 g/dL (2.2-4.0); Potassium, Blood 4.8 mmol/L (3.5-5.5); Total Protein, Blood 7.2 g/dL (6.4-8.2)
[2023-03-28 20:54] LABS: Source, Urine Clean Catch
[2023-03-28 20:59] LABS: Bilirubin, Urine Neg (Neg); Blood, Urine Neg (Neg); Glucose Qualitative, Urine Neg (Neg); Ketones, Urine Neg (Neg); Leukocyte Esterase, Urine 2+ (Neg); Nitrite, Urine Neg (Neg); Protein, Urine Neg (Neg); Urobilinogen, Urine NORM (Normal)
[2023-03-28 21:07] LABS: Appearance, Urine Clear (Clear); Color, Urine Yellow (P-Yellow)
[2023-03-28 21:08] LABS: Bacteria Few /hpf; Red Blood Cells, Urine 0-2 /hpf (0-2); Squamous Epithelial Cells Rare /hpf (Few)
[2023-03-28] MEDS ORDERED: Cefdinir 300 MG Cap PO SCH (21:25)
[2023-03-28 22:19] VITALS: BP 161/75
[2023-03-29] MEDS ORDERED: QUEtiapine Fumarate 25 MG Tab PO ONE (00:20)
[2023-03-29 09:38] VITALS: BP 129/56
[2023-03-29] MEDS ORDERED: LORazepam 1 MG Tab PO PRN (10:10)
[2023-03-29] MEDS ORDERED: QUEtiapine Fumarate 25 MG Tab PO PRN (10:15)
[2023-03-29] MEDS ORDERED: OLANZapine ODT 5 MG Tab MM PRN (10:15)
[2023-03-29] MEDS ORDERED: LORazepam 2 MG/ML 1ML Injection IM ONE (12:25)
[2023-03-29] MEDS ORDERED: FLU VACC QS2023-24(6MOS UP)/PF 60 MCG/0.5 ML SYRINGE IM SCH (12:25)
[2023-03-29] MEDS ORDERED: LORazepam 1 MG Tab SL SCH (14:00)
[2023-03-29] MEDS ORDERED: SERT25 PO (16:51)
--- NOTE | 2023-03-29 16:58 | NUR ---
PT ARRIVED TO THE MEDICAL FLOOR FROM THE ER VIA RECLINER. PT WAS LIFTED VIA JULIO CÉSAR LIFT FROM THE CHAIR TO THE BED. PT IS DROWSY OPENS EYES TO PAINFULL STIMULI. PT APPEARS TO BE BREATHING EASILY AT REST WITHOUT OXYGEN. DR. CHILDERS IN TO SEE THE PT. CALL LIGHT IN REACH. BED IN THE LOW POSITION. BED ALARM ON
[2023-03-29] MEDS ORDERED: MetFORMIN HCl 500 mg PO SCH (17:00)
[2023-03-29] MEDS ORDERED: Rosuvastatin Calcium 10 MG Tab PO SCH (21:00)
--- NOTE | 2023-03-30 05:49 | NUR ---
REPRODUCTION MACHINE LOADER SUMMARY PT ON COMFORT CARE. INCONT OF URINE AND LINEN CHANGED. HAS BEEN RESTING QUIETLY WITH OCCASIONAL INTERRUPTIONS OF RESTLESSNESS. RESPS EVEN. VERBAL RESPONSE COOPERATIVE, BUT SOME PROBLEMS WITH COMMUNICATION OBSERVED. CALL LIGHT IN REACH. RAILS UP X 3 AND SITTER AT BEDSIDE FOR SAFETY. WILL CONTINUE TO MONITOR
--- NOTE | 2023-03-30 05:54 | NUR ---
FACILITY REPORT [id number] REPORT FOR PT UPDATE GIVEN BY PHONE.
[2023-03-30] MEDS ORDERED: DULoxetine HCL 30 MG Cap DR PO SCH (09:00)
[2023-03-30] MEDS ORDERED: Finasteride 5 MG Tab PO SCH (09:00)
[2023-03-30] MEDS ORDERED: Metoprolol Tartrate 50 MG Tab PO SCH (09:00)
[2023-03-30] MEDS ORDERED: OLANZapine 10 MG Vial IM PRN (11:50)
--- NOTE | 2023-03-30 18:13 | NUR ---
"Spiritual Care | Pt. Request Pt. is awake and welcomes my visit. Pt. displays evidence of pleasant confusion. Pt. declines spiritual care or prayer, but verbalizes a request to provide him with a knife, to which I declined. Pt. displayed evidence of soft speaking and continued confusion, but he did verbalize that he would like to have this nanoelectronics engineer return."
--- NOTE | 2023-03-30 18:36 | NUR ---
PT STARTED OUT SHIFT ACTING A BIT SUSPICIOUS OF CARE PROVIDERS. WAS ABLE TO HAVE PT TAKE SOME ATIVAN WITH PUDDING FROM AND HE THEN BECAME MUCH MORE COOPERATIVE. THIS DID NOT LAST LONG AND PT STARTED TO GET MORE CONFUSED AND BECAME VERY IMPULSIVE AND INSISTING ON CLIMBING OUT OF BED. REDIRECTION AND MEDICATION WAS NOT WORKING AND PT WAS AT RISK OF FALLING. POSE ORDER WAS OBTAINED FROM DR CHILDERS. PT WAS PULLING OF POSE FOR A TIME AND THEN QUIETED DOWN AND TOOK A NAP. PT HAS NOW WOKE UP AND IS RESTING QUIETLY IN BED. WILL CONTINUE TO MONITOR.
--- NOTE | 2023-03-31 06:38 | NUR ---
SHIFT SUMMARY PT SLEPT THROUGH NIGHT, WAKING FOR LINEN CHANGE X2. CONFUSED TO LOCATION. STATED HE WANTS TO "GET OUT OF HERE". THIS RN REORIENTED TO LOCATION AND SITUATION. PT WAS PLEASANT AND SMILING DURING CARE. HIS RIGHT EYE IS WEEPING WHERE IT IS SWOLLEN AND BRUISED. THERE IS YELLOW OBSERVED FLOATING BEHIND PUPIL IN RIGHT EYE. CONTINUE TO OBSERVE AND MONITOR FOR SAFETY.
--- NOTE | 2023-03-31 17:53 | NUR ---
PT HAS BEEN DOING WELL. CONTINUES TO BE IMPULSIVE AND AT TIMES WANTS TO LEAVE. PT CAN GET TENSE WITH NEW FACES. PT WILL AT TIMES BE VERY PLEASANT AND COOPERATIVE. MEDICATION HAS BEEN GIVEN WHEN HE GET ANXIOUS AND IS CAN BE EFFECTIVE OTHER TIMES IT TAKE SOMETIME TO CHANGE TO A MORE COOPERATIVE MOOD. PT HAS TOLERATED ALL TURNING AND CLEANING AT THIS TIME. BED ALARM IS IN PLACE WILL CONTINUE TO MONITOR.
--- NOTE | 2023-04-01 05:34 | NUR ---
SHIFT SUMMARY - PT'S MOOD/BEHAVIOR ARE LABILE. PT VACILLATES FROM BEING COOPERATIVE AND PLEASANT WITH CARE, TO IRRITABLE/AGITATED. PT CONTINUES IN A JANUARY VEST FOR PT SAFETY, HE OFTEN SWINGS HIS LEGS OUT OF BED - NEEDING REDIRECTION. PT MEDICATED X1 WITH IM ZYPREXA. PT SLEPT FOR APPX 3-4 HOURS TONIGHT. PT TOLERATED PO INTAKE OF WATER. DECLINED PUDDING AND MEDICATION THAT WAS PLACED IN THE PUDDING TONIGHT. WILL CONTINUE TO MONITOR UNTIL AM SHIFT CHANGE. BED ALARM ON FOR SAFETY.
--- NOTE | 2023-04-01 17:18 | NUR ---
SHIFT SUMMARY Pt remains pleasantly confused to self this shift. Misa mcmanus'd. Will at times try to get OOB, however easily redirected. Zyprexa and Ativan effective. Incontinent of urine. Hygiene and brief changes provided. No acute distress noted this shift. Plan remains to dc to [facility] 04/01.
[2023-04-01] MEDS ORDERED: QUEtiapine Fumarate 50 MG TAB PO SCH (21:00)
--- NOTE | 2023-04-02 06:08 | NUR ---
SHIFT SUMMARY; PATIENT SLEPT COMFORTABLY ALL NOC SHIFT. ONLY WAKING WHEN THIS RN AND AMNA TRUONG CHANGED HIS ATTENDS AND STRAIGHTENED HIM IN BED. HE IMMEDIATELY WENT BACK TO SLEEP.
[2023-04-02] MEDS ORDERED: LORazepam 1 MG Tab PO PRN (16:05)
[2023-04-02] MEDS ORDERED: LORazepam 1 MG Tab PO ONE (16:05)
--- NOTE | 2023-04-02 18:26 | NUR ---
DC HOME ON HOSPICE TRANSPORT HERE TO TAKE PT HOME VIA W/C. PKT GIVEN TO TRANSPORT PERSONNEL.
== END 2023-04-02 18:24 | disposition home or self-care (01) ==
LOC: ER 18:30 → ERHOLD 18:31 → MEDS 03-29 16:41 → ENPENDDIS 04-01 16:42 → MEDS 04-02 18:24
PROVIDERS: Emergency Medicine; ADMIT Internal Medicine
DX: F03.911 Unspecified dementia, unspecified severity, with agitation (principal); I25.10 Atherosclerotic heart disease of native coronary artery without angina pectoris; E78.5 Hyperlipidemia, unspecified; E11.9 Type 2 diabetes mellitus without complications; N40.0 Benign prostatic hyperplasia without lower urinary tract symptoms; N39.0 Urinary tract infection, site not specified; I48.20 Chronic atrial fibrillation, unspecified; M48.061 Spinal stenosis, lumbar region without neurogenic claudication
CPT/HCPCS: 36415; 70450; 72125; 80053; 81001; 85025; 87086; 96372; 99285-25; A9270; G0378; J2060

== ENCOUNTER 2023-04-04 12:31 | Emergency (ER) | payer MEDICARE ==
[~2023-04-04 12:31] MED LIST changes: +LORA2 SL; +METFORMIN HCL500 M2 PO; +METOPROLOL TART5010 PO; +OLANZAPINE ODT512 MM; +QUETIAPINE FUMA25 MG PO; +ROSUVASTATIN CA10 MG PO; +SERT25 PO; +ZOLOFT25 MG PO
[2023-04-04] MEDS ORDERED: QUEtiapine Fumarate 25 MG Tab PO ONE (12:45)
== END 2023-04-04 12:55 | disposition home or self-care (01) ==
LOC: ER 12:31
DX: F03.90 Unspecified dementia, unspecified severity, without behavioral disturbance, psychotic disturbance, mood disturbance, and anxiety (principal); I10 Essential (primary) hypertension; N40.0 Benign prostatic hyperplasia without lower urinary tract symptoms; E11.9 Type 2 diabetes mellitus without complications; I25.10 Atherosclerotic heart disease of native coronary artery without angina pectoris; I48.91 Unspecified atrial fibrillation; E78.5 Hyperlipidemia, unspecified; Z87.891 Personal history of nicotine dependence; Z79.84 Long term (current) use of oral hypoglycemic drugs; Z79.899 Other long term (current) drug therapy
CPT/HCPCS: 99283; A9270